=== PATIENT | female | born 1990 | race Caucasian/White ===

== ENCOUNTER 2018-07-02 12:46 | Outpatient (CLI) | payer OTHER, MEDICAID ==
[~2018-07-02 12:46] MED LIST: ALBU8.5H5 IH; CALC600T5 PO; FERR240T9 PO; PRENAT PO
--- NOTE | 2018-07-02 15:05 | TRIAGE ---
OB Triage Datetime Report Generated by CPN: 07/02/2018 15:04 Datetime: 07/02/2018 14:41 Time of Arrival: 07/02/2018 12:35 EGA: 20.1 Arrived By: Wheelchair Arrived From: Home Chief Complaint: VAG SPOTTING AND UCS SINCE 15 WEEKS Movement: Present Rupture of Membranes: Denies Vaginal Bleeding: None Vaginal Discharge: Denies Recent Sexual Intercouse: Denies Abdominal Trauma: Not Applicable Patient Complaints: Contractions Time Provider Notified: 07/02/2018 13:00 Provider Notified: REICHE Initial Plan: EFM,CA;; DR HADADIAN Datetime: 07/02/2018 13:16 Labor Evaluation Contraction Comments: toco moved to low abd
--- NOTE | 2018-07-02 16:38 | PN ---
Triage Information Date/Time 07/02/1801/12/1629 Reason for visit: Uterine contractions Weeks of Gestation 20w6d /Para Diabetes: none Hypertention: none Additional information feeling cramping pain since 15weeks hx of short cervix with previous which was delivered at 38weeks symptoms got alleviated by resting, aggrevated by activities Objective 109/61, 86,18 98.3 Heart Rate: 140's Contractions: None Results/Medications Imaging Results CVL 2.7 yesterday seen by perinatalogist plan to check in 2weeks Disposition: Discharge Assessment/Plan A IUP 20w6d hx of short cervix short ervix P discharge home with instructions to use common sense reduce the activities according to her symptoms f/u CVL in 2weeks SALLY WATTS MD Jul 02, 2018 16:38
== END 2018-07-02 14:40 | disposition home or self-care (01) ==
LOC: L-D 12:46 → OBT 12:46
PROVIDERS: ATTEND Obstetrics & Gynecology
DX: O26.872 Cervical shortening, second trimester (principal); O26.852 Spotting complicating pregnancy, second trimester; Z3A.20 20 weeks gestation of pregnancy
CPT/HCPCS: G0463

== ENCOUNTER 2018-07-11 18:27 | Outpatient (CLI) | payer OTHER, MEDICAID ==
[~2018-07-11] VITALS: Ht 157.5 cm; Wt 69.9 kg
[2018-07-11 18:43] VITALS: Ht 157.5 cm; Wt 69.9 kg
[2018-07-11 18:44] VITALS: BP 111/68; RESP 19
--- NOTE | 2018-07-11 22:22 | PN ---
Triage Information Date/Time July 11, 2018 Reason for visit: Abd/pelvic pain Weeks of Gestation 21w 3d /Para 2/1 Diabetes: none Hypertention: none Objective Vital Signs Date Temp Pulse Resp B/P (MAP) Pulse Ox O2 O2 Flow FiO2 Time Delivery Rate 07/11/18 98.4 19 111/68 Room Air 18:44 (82) Heart Rate: 140's Heart Rate Comments No decels. Contractions: None Results/Medications Results 24 hrs Laboratory Tests Test 07/11/18 18:30 Urine Color STRAW Urine Clarity CLEAR Urine pH 7.0 Urine Specific [place] 1.004 Urine Ketones NEGATIVE Urine Nitrite NEGATIVE Urine Bilirubin NEGATIVE Urine Urobilinogen NEGATIVE Urine Leukocyte Esterase 2+ H Urine Microscopic RBC 1 Urine Microscopic WBC 7 H Urine Squamous Epithelial Cells FEW Urine Bacteria FEW A Urine Hemoglobin NEGATIVE Urine Glucose NEGATIVE Urine Total Protein NEGATIVE Imaging Results Cervical length 2.5 cm; no change. Disposition: Discharge Assessment/Plan A: IUP at 21w 3d. Pelvic/back pain. H/o contractions in her prior . P: Pt has already modified her work so she can wear sneakers, sit much more and not do as much bending and she says it has helped. She is also wearing a belly band. Pt , in her last , went on disability at 31 or 33 weeks and was on Procardia. Although no contractions noted will send a Rx for Procardia to her pharmacy so she can see if it helps at those times. Urine cx will also be done. GWYN ZAMBRANO MD Jul 11, 2018 22:22
--- NOTE | 2018-07-11 22:29 | TRIAGE ---
OB Triage Datetime Report Generated by CPN: 07/11/2018 22:29 Datetime: 07/11/2018 22:19 Stage of : OB Triage Datetime: 07/11/2018 21:05 Stage of : OB Triage Datetime: 07/11/2018 21:00 Labor Evaluation Monitor Mode: External Resting Tone Naomi: Relaxed Datetime: 07/11/2018 20:00 Labor Evaluation Monitor Mode: Palpation Resting Tone Naomi: Relaxed Datetime: 07/11/2018 19:28 Heart Rate FHR Baseline Rate: 145 Monitor Mode: External US FHR Baseline Changes: No Baseline Change Datetime: 07/11/2018 18:34 Maternal Assessment Level of Consciousness: Fully Conscious DTR's/Clonus: DTRs 2+; No Clonus Headache: Denies Blurred Vision: No Respiratory Effort: Unlabored; Regular Rhythm; Equal Expansion Breath Sounds, Left: Clear and Equal Breath Sounds, Right: Clear and Equal Nausea/Vomiting: Denies RUQ Epigastric Pain: Denies Facial Edema: None Temperature Route: Axillary Fall Risk Assessment History of Falling: (0) No Secondary Diagnosis: (0) No Ambulatory Aid: (0) Bedrest/Nurse Assist IV Therapy: (0) No Gait: (0) Normal/Bedrest/Immobile Mental Status: (0) Oriented to Own Ability Fall Score: 0 Fall Risk Score Definition: No Risk: No action required Datetime: 07/11/2018 18:32 Time of Arrival: 07/11/2018 18:33 EGA: 21.3 Arrived By: Wheelchair Arrived From: Home Chief Complaint: back pain Movement: Present Rupture of Membranes: Denies Vaginal Bleeding: None Vaginal Discharge: Denies Recent Sexual Intercouse: Yes Abdominal Trauma: Not Applicable Patient Complaints: Back Pain Time Provider Notified: 07/11/2018 19:20 Provider Notified: reiche Initial Plan: monitors applied Datetime: 07/11/2018 18:31 Heart Rate FHR Baseline Rate: 145 Monitor Mode: External US Comments: appropiate for gestational age Datetime: 07/02/2018 14:41 EGA: 20.1
== END 2018-07-11 22:17 | disposition home or self-care (01) ==
LOC: OBT 18:27 → L-D 18:28 → OBT 22:17
PROVIDERS: ATTEND Obstetrics & Gynecology
DX: O26.892 Other specified pregnancy related conditions, second trimester (principal); Z3A.21 21 weeks gestation of pregnancy; R10.2 Pelvic and perineal pain
CPT/HCPCS: 76817; 81001; 87086; G0463

== ENCOUNTER 2018-10-20 18:23 | Inpatient (IN) | payer OTHER, MEDICAID ==
[~2018-10-20] VITALS: Ht 160 cm; Wt 79.2 kg
[2018-10-20 18:35] VITALS: Ht 160 cm; Wt 79.2 kg
[2018-10-20 18:36] VITALS: BP 120/79; PULSE 121; RESP 18
[2018-10-20] MEDS ORDERED: BUTORPHANOL 2 MG INJ IV PRN (19:00)
[2018-10-20] MEDS ORDERED: LIDOCAINE 1% (MPF) 30 ML INJ INJ PRN (19:00)
[2018-10-20] MEDS ORDERED: OXYTOCIN 30 UNITS/LR 500 ML IV PRN (19:00)
[2018-10-20] MEDS ORDERED: MISOPROSTOL 200 MCG TAB PR PRN (19:00)
[2018-10-20] MEDS ORDERED: METHYLERGONOVINE 0.2 MG INJ IM PRN (19:00)
[2018-10-20] MEDS ORDERED: OXYTOCIN 30 UNITS/LR 500 ML IV SCH ×3 (19:00→21:30)
[2018-10-20] MEDS ORDERED: OXYCODONE/ASPIRIN (4.88/325) TAB PO PRN (19:00)
[2018-10-20] MEDS ORDERED: IBUPROFEN 600 MG TAB PO PRN (19:00)
[2018-10-20] MEDS ORDERED: CARBOPROST 250 MCG INJ IM PRN (19:00)
[2018-10-20] MEDS: LACTATED RINGER'S 1,000 ML IV SCH ×2 (19:06→20:32)
[2018-10-20] MEDS ORDERED: LACTATED RINGER'S 1,000 ML IV PRN (19:40)
--- NOTE | 2018-10-20 19:53 | PREAC ---
Date/Time of Note Date/Time of Note DATE: 10/20/18 TIME: 19:52 Anesthesia Eval and Record Evaluation Time Pre-Procedure Interview DATE: 10/20/18 TIME: 19:52 Age 28 Sex female NPO: 8 hrs Preoperative diagnosis labor pain Planned procedure epidural Past Medical History Past Medical History: Includes Pulm: Asthma : Gestational age: (36.6) Surgery & Anesthesia Issues No known issue Meds Anticoagulation: No Beta Darrius within 24 hr: No Reason Beta Darrius not given: Pt. not on B-Darrius Reported Medications Calcium Carbonate (CALCIUM) 600 Mg Tablet, 600 MG PO DAILY 10/21/14 Ferrous Gluconate (Iron) 1 Tab Tablet, 1 TAB PO DAILY 10/21/14 Albuterol Sulfate* (Albuterol Sulfate* HFA) 8.5 Gm Hfa.aer.ad, 2 PUFF IH Q4H PRN for WHEEZING AND SOB, EA 07/29/14 Multivit/Min/Fol Ac/Iron/Pren* ( S*) 1 Tab Tab, 1 TAB PO DAILY, TAB 07/29/14 Current Medications Lactated Ringer's 1,000 ml @ 125 mls/hr Q8H IV Last administered on 10/20/18at 19:06; Admin Dose 125 MLS/HR; Start 10/20/18 at 18:40 Butorphanol Tartrate (Stadol) 2 mg Q2H PRN IV .PAIN SCALE 6-10; Start 10/20/18 at 19:00 Lidocaine (Xylocaine 1% (Mpf)) 30 ml ONCE PRN INJ .EPISIOTOMY; Start 10/20/18 at 19:00 Oxytocin/Lactated Ringer's 500 ml @ 500 mls/hr ONCE POST IV ; Start 10/20/18 at 19:00 Oxytocin/Lactated Ringer's 500 ml @ 125 mls/hr POST IV ; Start 10/20/18 at 19:00 Ibuprofen (Motrin) 600 mg ONCE PRN PO .PAIN 1-5; Start 10/20/18 at 19:00 Oxycodone/Aspirin (Percodan) 2 tab ONCE PRN PO .PAIN 6-10; Start 10/20/18 at 19:00 Oxytocin/Lactated Ringer's 500 ml @ 0 mls/hr ONCE PRN IV .VAGINAL BLEEDING; Start 10/20/18 at 19:00 Methylergonovine Maleate (Methergine) 0.2 mg ONCE PRN IM .VAGINAL BLEEDING; Start 10/20/18 at 19:00 Carboprost Tromethamine (Hemabate) 250 mcg ONCE PRN IM .VAGINAL BLEEDING; Start 10/20/18 at 19:00 Misoprostol (Cytotec) 1,000 mcg ONCE PRN MD .VAGINAL BLEEDING; Start 10/20/18 at 19:00 Lactated Ringer's 1,000 ml @ 2,000 mls/hr Q30M PRN IV .ANESTHESIA Last administered on 10/20/18at 19:46; Admin Dose 2,000 MLS/HR; Start 10/20/18 at 19:40 Meds reviewed: Yes Allergies Coded Allergies: No Known Allergy (Unverified , 12/01/14) Allergies Reviewed: Yes Labs/Studies Labs Reviewed: Reviewed by anesthesiologist Result Diagram: 10/20/18 1845 Laboratory Tests 10/20/18 18:45 test: Positive Studies: ECG (n/a), CXR (n/a) Pre-procedure Exam Last vitals Vital Signs Date Temp Pulse Resp B/P (MAP) Pulse Ox O2 O2 Flow FiO2 Time Delivery Rate 10/20/18 97.9 121 18 120/79 18:36 (93) Airway: Adequate mouth opening Mallampati: Mallampati I Teeth: Normal Lung: Normal Heart: Normal ASA Physical Status ASA physical status: 2 Emergency: None Planned Anesthetic Neuraxial: Epidural Pre-operative Attestations Prior to commencing anesthesia and surgery, the patient was re-evaluated, there was verification of: *The patient's identity *The results of appropriate recent lab work and preoperative vital signs *The above evaluation not changing prior to induction *Anesthetic plan, risk benefits, alternative and complications discussed with pa tient/family; questions answered; patient/family understands, accepts and wishes to proceed. JOSE MARTÍNEZ MD Oct 20, 2018 19:53
[2018-10-20] MEDS ORDERED: FENTAnyl 2MCG/ML-ROPIV 0.2% 100 ML ONE (20:03)
[2018-10-20] MEDS ORDERED: FENTAnyl 2MCG/ML-ROPIV 0.2% 100 ML BAG EPI SCH (21:00)
[2018-10-20] MEDS ORDERED: DIPHENHYDRAMINE 50 MG INJ IV PRN (21:00)
[2018-10-20] MEDS ORDERED: ONDANSETRON 4 MG INJ IV PRN (21:00)
[2018-10-20] MEDS ORDERED: NALOXONE (0.4 MG/ML) INJ IV PRN (21:00)
[2018-10-20] MEDS ORDERED: ALBUTEROL HFA 8 GM INHALER INH PRN (21:30)
--- NOTE | 2018-10-21 01:49 | LDN ---
Date/Time of Note Date/Time of Note DATE: 10/21/18 TIME: 01:46 Delivery Summary of a viable baby girl weighing 3075 grams or 6# 12 oz, 18.5" long, and with Apgars of 9/9. Weeks of Gestation 37w Placenta Delivered: Spontaneously Meconium: none Episiotomy: No Perineal laceration: 0 Anesthesia type: Epidural Estimated blood loss: 150 Sponge & Needle done & correct: Yes All needle counts correct: Yes Any foreign bodies felt in the: No (vagina) Infant Delivery Information Sex Sex: female Apgars 1 Minute: 9 5 Minute: 9 Suctioning Nose & mouth suctioned at hubert: Yes Delee suction performed: No Umbilical Cord Umbilical cord with: 3 Vessels Cord presentations: no nuchal cord Cord Blood was obtained: Yes Mother & Baby Disposition Disposition Mom & Baby to Maternity; Good: Yes Baby to NICU: No GWYN ZAMBRANO MD Oct 21, 2018 01:49
[2018-10-21] MEDS ORDERED: OXYTOCIN 30 UNITS/LR 500 ML IV SCH (01:55)
[2018-10-21] MEDS: LACTATED RINGER'S 1,000 ML IV* SCH ×3 (01:55→09:55)
--- NOTE | 2018-10-21 01:55 | HP ---
Date/Time of Note Date/Time of Note DATE: 10/21/18 TIME: 01:49 OB - History Hx of Present Free Text/Dictation 28 y.o. with an IUP at 36w 6d was seen in the office today at 36w 6d and was found to be 90% effaced and 6 cm dilated at 0 station and was sent to the hospital for delivery. She has been on Procardia for contractions since Mid August. Estimated Due Date: Nov 11, 2018 : 2 Para: 1 Care: Good Care Ultrasounds: Normal mid trimester US Obstetrical Complications: Other ( contractions and has been on Procardia since mid August) Medical Complications: Respiratory (asthma) Past Family/Social History * Past Medical, Surgical, Family and Obstetric Histories reviewed from chart. Blood Type: B+ Rubella: immune RPR/VDRL: Negative GBS Status: Negative HBsAG: Negative OB Admission Exam Vital Signs Vital Signs Vital Signs Date Temp Pulse Resp B/P (MAP) Pulse Ox O2 O2 Flow FiO2 Time Delivery Rate 10/20/18 97.9 121 18 120/79 18:36 (93) Physical Exam HEENT: WNL Heart: Rhythm Normal Lungs: Clear Abdomen: WNL Extremities: Normal Cervical Dilatation: 6cm Effacement: Other (90%) Station: 0 Membranes: Intact Amniotic Fluid: Clear Heart Rate: 140's Accelerations: Accelerations Present Decelerations: No Decelerations Varibility: Moderate Contractions on Admission: < 5 Minutes Apart Intensity: Mild Last 72 hours Lab Results CBC & BMP 10/20/18 18:45 OB Assessment/Plan Reason for admission: active labor Plan: Expectant Management Other plan: Augmentation as needed. GWYN ZAMBRANO MD Oct 21, 2018 01:55
[2018-10-21] MEDS ORDERED: OXYTOCIN 30 UNITS/LR 500 ML IV PRN (02:00)
[2018-10-21] MEDS ORDERED: HYDROCODONE/APAP (5/325) TAB PO PRN (02:00)
[2018-10-21] MEDS ORDERED: ALBUTEROL HFA 8 GM INHALER INH PRN (02:00)
[2018-10-21] MEDS ORDERED: CARBOPROST 250 MCG INJ IM PRN (02:00)
[2018-10-21] MEDS ORDERED: METHYLERGONOVINE 0.2 MG INJ IM PRN (02:00)
[2018-10-21] MEDS ORDERED: MISOPROSTOL 200 MCG TAB PR PRN (02:00)
[2018-10-21 03:10] VITALS: BP 112/58; PULSE 84; RESP 18
[2018-10-21] MEDS: IBUPROFEN 600 MG TAB PO SCH ×3 (05:55→17:31)
[2018-10-21 08:20] VITALS: BP 103/55; PULSE 83; RESP 17
--- NOTE | 2018-10-21 09:34 | PAC ---
Date/Time of Note Date/Time of Note DATE: 10/21/18 TIME: 09:34 Post-Anesthesia Notes Post-Anesthesia Note Last documented vital signs Vital Signs Date Temp Pulse Resp B/P (MAP) Pulse Ox O2 O2 Flow FiO2 Time Delivery Rate 10/21/18 97.9 84 18 112/58 97 Room Air 03:10 (76) Activity: WNL Respiratory function: WNL Cardiovascular function: WNL Mental status: Baseline Pain reasonably controlled: Yes Hydration appropriate: Yes Nausea/Vomiting absent: No JOSE MARTÍNEZ MD Oct 21, 2018 09:34
[2018-10-21 12:15] VITALS: BP 102/59; PULSE 76; RESP 17
[2018-10-21 16:00] VITALS: BP 111/76; PULSE 87; RESP 17
[2018-10-21 19:50] VITALS: BP 108/63; PULSE 75; RESP 18
[2018-10-21] MEDS: LANOLIN HPA 1 PKT TOP PRN (22:01)
[2018-10-22] VITALS: BP 100/62; PULSE 70; RESP 18
[2018-10-22] MEDS: IBUPROFEN 600 MG TAB PO SCH ×4 (05:41→18:06)
[2018-10-22 08:00] VITALS: BP 112/76; PULSE 82; RESP 18
--- NOTE | 2018-10-22 08:42 | PD.PPDC ---
FURNACE HELPER Discharge Instruction Condition [id number] Patient Condition: [id number] Good Diet [id number] Diet: Spimg5c Resume Regular Diet Activity/Restrictions [id number] Activity: [id number] Normal Activity May Shower [id number] Restrictions: [id number] No Sexual Activity Nothing in the Vagina No Hickox No Tampons, douche Follow-up Follow-up with Physician: 6, Week/Weeks Return to clinic for [id number] EARLY CHILDHOOD Instructions: Uyssb9a Fever greater than 101 Chills Worsening abdominal pain Excessive Vaginal Bleeding [id number] OB Instructions: [id number] Breast Tenderness Depression GWYN ZAMBRANO MD Oct 22, 2018 08:42
--- NOTE | 2018-10-22 08:45 | DS ---
Date/Time of Note Date/Time of Note DATE: 10/22/18 TIME: 08:43 Obstetrical Discharge Record Final Diagnosis Final Diagnosis: Term delivered Vaginal Delivery Obstetrical Delivery: Spontaneous Complications Augmentation: Yes Induction: No Tocolytics: Other (Procardia x 6 weeks) Condition on Discharge Physical Assessment Last Vitals: 98.7 BP 100/62 Voiding: Yes Bowel Movement: Yes Breast: Filling Fundus: Firm Calf Tenderness: No Patient Condition: Good GWYN ZAMBRANO MD Oct 22, 2018 08:45
[2018-10-22 16:00] VITALS: BP 114/67; PULSE 88; RESP 18
[2018-10-22 20:00] VITALS: BP 131/68; PULSE 93; RESP 18
[2018-10-23] MEDS: IBUPROFEN 600 MG TAB PO SCH ×3 (00:29→11:42)
[2018-10-23 04:12] VITALS: BP 102/62; PULSE 83; RESP 18
[2018-10-23] MEDS: LANOLIN HPA 1 PKT TOP PRN (05:48)
[2018-10-23 08:51] VITALS: BP 118/75; PULSE 88; RESP 18
[2018-10-23] MEDS ORDERED: DIPHTH/TET/ACEL PERTUSS (ADULT) 0.5 ML VIAL IM* ONE (09:00)
--- NOTE | 2018-10-24 17:04 | DELSUM ---
Delivery Summary A-C Datetime Report Generated by CPN: 10/24/2018 17:04 DELIVERY PERSONNEL Silver Solution Mixer: Canuto, Leeann MATERNAL INFORMATION Delivery Anesthesia: Epidural Medications in Delivery: LR WITH 30 UNITS OF PITOCIN Delivery QBL (ml): 150 Placenta Cultured: No LABOR SUMMARY EDC: 11/11/2018 00:00 No. Babies in Womb: 1 Attempted: No Labor Anesthesia: Epidural LABOR INFORMATION Reason for Induction: Not Applicable Onset of Labor: 10/20/2018 09:00 Complete Dilatation: 10/21/2018 01:08 Group B Beta Strep: Negative Antibiotics # of Doses: 0 Steroids Given: None Reason Steroids Not Administered: Not Applicable MEMBRANES Membranes Rupture Method: Artificial Rupture of Membranes: 10/20/2018 20:56 Length of Rupture (hr): 4.47 Amniotic Fluid Color: Clear Amniotic Fluid Amount: Moderate Amniotic Fluid Odor: None STAGES OF LABOR Stage 1 hr: 16 Stage 1 min: 8 Stage 2 hr: 0 Stage 2 min: 16 Stage 3 hr: 0 Stage 3 min: 6 Total Time in Labor hr: 16 Total Time in Labor min: 30 VAGINAL DELIVERY Episiotomy: None Laceration Extension: N/A Laceration Type: None Laceration Repair: Yes Initial Vag Sponge Count: 10 Final Vag Sponge Count: 10 Initial Vag Sharps Count: 1 Final Vag Sharps Count: 1 Sponge Count Correct: Yes Sharps Count Correct: Yes BABY A INFORMATION Infant Delivery Date/Time: 10/21/2018 01:24 Method of Delivery: Vaginal Born in Route : No : N/A Forceps: N/A Vacuum Extraction: N/A Shoulder Dystocia : No SHOULDER DYSTOCIA BABY A Delivery Date/Time: 10/21/2018 01:24 PRESENTATION/POSITION BABY A Presentation: Cephalic Cephalic Presentation: Vertex Vertex Position: Right Occipital Anterior Breech Presentation: N/A PLACENTA INFORMATION BABY A Placenta Delivery Time : 10/21/2018 01:30 Placenta Method of Delivery: Spontaneous Placenta Status: Delivered SCORES BABY A Heart Rate 1 min: >100 bpm Resp Effort 1 min: Good Cry Reflex Irritability 1 min: Cough/Sneeze/Pulls Away Muscle Tone 1 min: Active Motion Color 1 min: Body [place], Extremit Blue Resuscitation Effort 1 min: Tactile Stimulation SCORE 1 MIN: 9 Heart Rate 5 min: >100 bpm Resp Effort 5 min: Good Cry Reflex Irritability 5 min: Cough/Sneeze/Pulls Away Muscle Tone 5 min: Active Motion Color 5 min: Body [place], Extremit Blue Resuscitation Effort 5 min: Tactile Stimulation SCORE 5 MIN: 9 INFORMATION BABY A Gestational Age at Delivery: 37.0 Gestational Status: Early Term- 37- 38.6 Weeks Outcome : Liveborn, with signs of life Condition : Stable Sex: Female IDENTIFICATION/MEDS BABY A ID Band Number: [id number] ID Band Location: Right Leg; Left Arm Sensor Applied: Yes Sensor Number: [id number] Sensor Location : Cord Clamp Vitamin K Given : Not Given Erythromycin Given: Not Given WEIGHT/LENGTH BABY A Infant Birthweight (gm): 3075 Infant Weight (lb): 6 Infant Weight (oz): 12 Length (in): 18.50 Infant Length (cm): 46.99 CORD INFORMATION BABY A No. Cord Vessels: 3 Nuchal Cord : N/A Cord Blood Taken: Yes Infant Suction: Mouth; Nose ASSESSMENT BABY A Infant Complications: None Physical Findings at Delivery: Within Normal Limits Respirations: Appears Normal Bander Hand/ALS Called : No Care By: THOMAS, E. Transferred To: Remains with Mother
== END 2018-10-23 16:20 | disposition home or self-care (01) | DRG 807 ==
LOC: L-D 18:23 → PP1 10-21 03:11 → EDSTATUS 11-18 18:21
PROVIDERS: ADMIT Obstetrics & Gynecology; ATTEND Obstetrics & Gynecology
PROC: 10E0XZZ Delivery of Products of Conception, External Approach (ICD-10-PCS; principal; 2018-10-21)
DX: O80 Encounter for full-term uncomplicated delivery (principal); Z37.0 Single live birth; Z3A.36 36 weeks gestation of pregnancy
CPT/HCPCS: 62322; 85025; 85610; 85730; 86592; 86850; 86900; 86901; 90715; J2590; J3010; J7120